=== PATIENT | male | born 1955 | race African-American/Black ===

== ENCOUNTER 2018-01-03 07:49 | Day surgery (SDC) | payer OTHER ==
[~2018-01-03] VITALS: Ht 180.3 cm; Wt 93.0 kg
[~2018-01-03 07:49] MED LIST: AMITIZA8 MICROGRA PO; COLCRYS0.6 MG PO; NAPROSYN500 MG PO; PAMELOR10 MG PO; PERCOCET 5/31 TABLET PO; PREVACID30 MG PO
[2018-01-03 08:30] VITALS: BP 139/73
[2018-01-03 11:53] VITALS: BP 130/79
[2018-01-03 12:14] VITALS: BP 131/80
== END 2018-01-03 12:25 | disposition home or self-care (01) ==
LOC: SDC 07:49
DX: H33.021 Retinal detachment with multiple breaks, right eye (principal); H33.41 Traction detachment of retina, right eye; G89.29 Other chronic pain; M54.9 Dorsalgia, unspecified; K21.9 Gastro-esophageal reflux disease without esophagitis; N40.0 Benign prostatic hyperplasia without lower urinary tract symptoms; M10.9 Gout, unspecified; M06.9 Rheumatoid arthritis, unspecified
CPT/HCPCS: J0690; J7120